=== PATIENT | female | born 1960 | race Two or more races ===

== ENCOUNTER 2018-09-06 08:56 | Emergency (ER) | payer MEDICAID, OTHER ==
[~2018-09-06] VITALS: Ht 152.4 cm; Wt 82.6 kg
[2018-09-06 09:08] VITALS: BP 132/80
== END 2018-09-06 09:48 | disposition home or self-care (01) ==
LOC: ER 08:59
DX: H10.9 Unspecified conjunctivitis (principal); J02.9 Acute pharyngitis, unspecified; H72.91 Unspecified perforation of tympanic membrane, right ear